=== PATIENT | male | born 1955 | race Caucasian/White ===

== ENCOUNTER 2021-09-19 08:16 | Emergency (ER) | payer BC ==
[~2021-09-19] VITALS: Ht 170.2 cm; Wt 83.9 kg
--- NOTE | 2021-09-19 08:51 | NUR ---
PT PLACED IN BED 6, REPORT TO
--- NOTE | 2021-09-19 09:11 | NUR ---
In ER bed 6 C/O R leg pain Fell yesterday at bedside
[2021-09-19] MEDS ORDERED: IBUP-1971 PO (09:54)
[2021-09-19] MEDS ORDERED: TRAM50TA2 PO (09:54)
[2021-09-19] MEDS ORDERED: MORPHINE 4 MG INJ. 4 MG/ML VIAL IM ONE (10:00)
[2021-09-19 12:05] VITALS: BP_SYST 138
--- NOTE | 2021-09-19 12:08 | NUR ---
Patient given written and verbal discharge instructions and verbalizes understanding. ER MD discussed with patient the results and treatment provided. Patient in stable condition. ID arm band removed. Knee [employer] Circ checks intact. Patient educated on pain management and to follow up with PMD. Pain Scale 2. Opportunity for questions provided and answered. Medication side effect fact sheet provided.
== END 2021-09-19 12:05 | disposition home or self-care (01) ==
LOC: SED 08:16
DX: S82.101A Unspecified fracture of upper end of right tibia, initial encounter for closed fracture (principal); W01.0XXA Fall on same level from slipping, tripping and stumbling without subsequent striking against object, initial encounter; Y93.89 Activity, other specified; Y92.481 Parking lot as the place of occurrence of the external cause; Y99.8 Other external cause status
CPT/HCPCS: 29505; 71045; 73560; 73590; 96372; 99284; J2270

== ENCOUNTER 2022-05-12 19:06 | Emergency (ER) | payer OTHER, BC ==
[~2022-05-12] VITALS: Ht 172.7 cm; Wt 83.9 kg
[~2022-05-12 19:06] MED LIST: IBUP-1971 PO; TRAM50TA2 PO
[2022-05-12 19:25] VITALS: BP_SYST 114
[2022-05-12] MEDS ORDERED: MORPHINE 4 MG INJ. 4 MG/ML VIAL IM ONE (20:30)
[2022-05-12] MEDS ORDERED: IBUP-1969 PO (20:43)
[2022-05-12] MEDS ORDERED: ONDA-8 TL (20:43)
[2022-05-12] MEDS ORDERED: HYDR-3917 PO (20:43)
[2022-05-12] MEDS ORDERED: LIDO1ADH71 TD (20:43)
[2022-05-12 20:52] VITALS: BP_SYST 114
== END 2022-05-12 20:52 | disposition home or self-care (01) ==
LOC: SED 19:06
DX: S39.012A Strain of muscle, fascia and tendon of lower back, initial encounter (principal); E78.5 Hyperlipidemia, unspecified; Z79.899 Other long term (current) drug therapy; V49.40XA Driver injured in collision with unspecified motor vehicles in traffic accident, initial encounter; Y93.89 Activity, other specified; Y92.89 Other specified places as the place of occurrence of the external cause; Y99.8 Other external cause status
CPT/HCPCS: 99283; 72100; 96372; J2270

== ENCOUNTER 2023-11-26 15:25 | Emergency (ER) | payer BC ==
[~2023-11-26] VITALS: Ht 172.7 cm; Wt 79.4 kg
[~2023-11-26 15:25] MED LIST changes: +HYDR-3917 PO; +IBUP-1969 PO; +LIDO1ADH71 TD; +ONDA-8 TL
[2023-11-26 15:30] VITALS: BP_SYST 108; PULSE 73; RESP 18; TEMP 97.5; O2SAT 94
[2023-11-26] MEDS: KETOROLAC TROMETHAMINE 60 MG/2 ML VIAL IM ONE (16:15)
[2023-11-26] MEDS: HYDROcodone/ACETAMIN 10-325 MG TAB PO ONE (16:16)
[2023-11-26] MEDS ORDERED: LIDO1ADH22 TP (16:37)
[2023-11-26] MEDS ORDERED: HYDR-3927 PO (16:37)
[2023-11-26] MEDS ORDERED: DICL75TA5 PO (16:37)
[2023-11-26] MEDS: LIDOCAINE PATCH 5% 1 EA TP ONE (16:39)
[2023-11-26 16:46] VITALS: BP_SYST 108; PULSE 73; RESP 18; TEMP 97.5; O2SAT 94
== END 2023-11-26 16:45 | disposition home or self-care (01) ==
LOC: SED 15:25
DX: G89.29 Other chronic pain (principal); M54.50 Low back pain, unspecified; E78.5 Hyperlipidemia, unspecified
CPT/HCPCS: 99283; 96372; J1885